=== PATIENT | male | born 1960 | race Caucasian/White ===

== ENCOUNTER 2018-11-09 01:10 | Emergency (ER) | payer MEDICAID ==
[~2018-11-09] VITALS: Ht 177.8 cm; Wt 92.2 kg
[2018-11-09 01:20] VITALS: BP 118/94
--- NOTE | 2018-11-09 01:20 | NUR ---
AMBULATED TO ER BED 11
--- NOTE | 2018-11-09 01:20 | NUR ---
PATIENT PRESENTS TO ED WITH C/O PAIN AND WOUND ON LEFT LEG AND LEFT ARM. PT STATES HE HAD A BUG BITES AND BECOMES WOUND. . DENIES N/V/D; SKIN IS PINK/WARM/DRY; AAOX4 WITH EVEN AND STEADY GAIT; LUNGS CLEAR BL; HR EVEN AND REGULAR; PT DENIES ANY FEVER, CP, SOB, OR COUGH AT THIS TIME; PATIENT STATES PAIN OF 6/10 AT THIS TIME; VSS; PATIENT POSITIONED FOR COMFORT; HOB ELEVATED; BEDRAILS UP X2; BED DOWN. ER MD MADE AWARE OF PT STATUS.
--- NOTE | 2018-11-09 01:23 | NUR ---
Patient being evaluated by physician at bedside.
[2018-11-09] MEDS ORDERED: METF1000 PO (01:28)
[2018-11-09] MEDS ORDERED: NEOMYCIN/POLYMYXIN/BACITRACIN 0.9 GM/1 PKT TP ONE (01:30)
[2018-11-09] MEDS ORDERED: CLINDAMYCIN 150 MG CAP PO ONE (01:30)
[2018-11-09] MEDS ORDERED: KETOROLAC 60 MG/2 ML VIAL IM ONE (01:30)
--- NOTE | 2018-11-09 01:48 | NUR ---
BANDAGES PLACED ON PT WOUNDS AFTER BACITRACIN APPLIED, 2 ON L LEG AND 1 ON L ARM
--- NOTE | 2018-11-09 02:20 | NUR ---
Patient discharged with v/s stable. Written and verbal after care instructions given and explained. Patient alert, oriented and verbalized understanding of instructions. Ambulatory with steady gait. All questions addressed prior to discharge. ID band removed. Patient advised to follow up with PMD. Rx of Tramadol 50mg,Motrin 800mg,Bactrim DS 800mg given. Patient educated on indication of medication including possible reaction and side effects. Opportunity to ask questions provided and answered.
[2018-11-09 02:22] VITALS: BP 110/68
== END 2018-11-09 02:22 | disposition home or self-care (01) ==
LOC: MED 01:10
DX: S80.262A Insect bite (nonvenomous), left knee, initial encounter (principal); S50.362A Insect bite (nonvenomous) of left elbow, initial encounter; L03.116 Cellulitis of left lower limb; L03.114 Cellulitis of left upper limb; M54.40 Lumbago with sciatica, unspecified side; G89.29 Other chronic pain; F17.200 Nicotine dependence, unspecified, uncomplicated; Z79.899 Other long term (current) drug therapy; W57.XXXA Bitten or stung by nonvenomous insect and other nonvenomous arthropods, initial encounter; Y93.89 Activity, other specified; Y92.89 Other specified places as the place of occurrence of the external cause; Y99.8 Other external cause status
CPT/HCPCS: 81002; 82948; 96372; 99283; J1885

== ENCOUNTER 2019-01-07 18:48 | Emergency (ER) | payer MEDICAID ==
[~2019-01-07] VITALS: Ht 167.6 cm; Wt 83.9 kg
[~2019-01-07 18:48] MED LIST: METF1000 PO
[2019-01-07 19:15] VITALS: BP 142/80
--- NOTE | 2019-01-07 19:15 | NUR ---
PT TAKEN TO BED 11, TRIAGED AT BEDSIDE.
--- NOTE | 2019-01-07 19:30 | NUR ---
58 YO M BIB SELF PRESESNTS TO ED C/O COUGH, SOB, FATIGUE, 6/10 SORE THROAT X 1 WEEK. PT REPORTS WET, PRODUCTIVE COUGH WITH GREEN SPUTUM AND REPORTS "FEELING HOT AND COLD ON AND OFF". PT ALSO C/O 7/10 RIGHT INDEX FINGER PAIN S/P POPPING A PIMPLE ON IT. -- PT IS LETHARGIC, A/O X 4. SKIN IS PINK, DRY, INTACT. PT FOLLOWS COMMAND AND ACTS APPROPRIATELY. -- BREATHING IS EVEN/UNABORED. LUNGS CTA. WET COUGH PRESENT WITH DEEP BREATHING. SP02: 95%. -- RIGHT INDEX FINGER, 2ND KNUCKLE IS RED, SWOLLEN WITH OPEN SORE. WHITE DRAINAGE PRESENT. PT POSITIONED FOR COMFORT. HOB ELEVATED, BED IN LOWEST POSITION, SIDE RAIL UP X1. VSS. NO APPARENT DISTRESS AT THIS TIME. WILL CONTINUE TO MONITOR. Addendum: 01/07/19 at 2009 by [facility] PMH: DIABETES RX: METFORMIN 1000 MG BID
--- NOTE | 2019-01-07 20:36 | NUR ---
XRAY AT BEDSIDE.
[2019-01-07] MEDS ORDERED: DEXAMETHASONE 10 MG/ML VIAL IM ONE (20:55)
--- NOTE | 2019-01-07 21:00 | NUR ---
KENDRA WASHINGTON RE-EVALUATING AT BEDSIDE.
[2019-01-07 21:16] VITALS: BP 127/83
--- NOTE | 2019-01-07 21:16 | NUR ---
Patient discharged with v/s stable. Written and verbal after care instructions given and explained. Patient alert, oriented and verbalized understanding of instructions. Ambulatory with steady gait. All questions addressed prior to discharge. ID band removed. Patient advised to follow up with PMD. Rx of Ibuprofen, Tessolon Perles, Cephalexom. Prednisone, Albuterol given. Patient educated on indication of medication including possible reaction and side effects. Opportunity to ask questions provided and answered.
== END 2019-01-07 21:16 | disposition home or self-care (01) ==
LOC: MED 18:48
DX: J40 Bronchitis, not specified as acute or chronic (principal); L03.011 Cellulitis of right finger; E11.9 Type 2 diabetes mellitus without complications; Z71.6 Tobacco abuse counseling; Z79.84 Long term (current) use of oral hypoglycemic drugs
CPT/HCPCS: 71045; 96372; 99283; J1100

== ENCOUNTER 2019-04-11 03:21 | Emergency (ER) | payer MEDICAID ==
[~2019-04-11] VITALS: Ht 177.8 cm; Wt 83.9 kg
[2019-04-11 03:27] VITALS: BP 134/99
--- NOTE | 2019-04-11 03:35 | NUR ---
PT AMBULATED W/ STEADY GAIT TO BED 7, URINE SAMPLE AT BEDSIDE.
[2019-04-11 03:56] VITALS: BP 134/99
--- NOTE | 2019-04-11 03:56 | NUR ---
58 Y/O M PRESENTED TO ED WITH C/O METAL STUCK IN L PINKY FINGER X 1 DAY. 9/10 PAIN, THROBBING. PER PT "WAS WORKING ON MY CAR WHEN I SPLICED BY FINGER ON SOME METAL." PT RECIEVED TETANUS SHOT FEBURARY 2018. +CMS. SMALL LACERATION NOTED TO L PINKY FINGER WITH SCANT YELLOW DISCHARGE. 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 ERMD NOTIFIED. WILL CONTINUE TO MONITOR.
--- NOTE | 2019-04-11 04:39 | NUR ---
DR. BRYAN EVALUATING PT
[2019-04-11] MEDS ORDERED: LIDOCAINE MPF 1% 5mL VIAL INJ ONE (04:50)
[2019-04-11] MEDS ORDERED: cefTRIAXone 1,000 MG in LIDOCAINE MPF 1% - 5 mL VIAL 2.1 ML IM ONE (05:45)
[2019-04-11] MEDS ORDERED: BACITRACIN OINT 500 UNITS/GM PKT TP ONE (05:45)
--- NOTE | 2019-04-11 06:20 | NUR ---
Patient discharged with v/s stable. Written and verbal after care instructions given and explained. Patient alert, oriented and verbalized understanding of instructions. Ambulatory with steady gait. All questions addressed prior to discharge. ID band removed. Patient advised to follow up with PMD. Rx of AUGMENTEN, NORCO, NAPROSYN given. Patient educated on indication of medication including possible reaction and side effects. Opportunity to ask questions provided and answered.
== END 2019-04-11 06:20 | disposition home or self-care (01) ==
LOC: MED 03:21
DX: S61.247A Puncture wound with foreign body of left little finger without damage to nail, initial encounter (principal); E11.9 Type 2 diabetes mellitus without complications; Z79.84 Long term (current) use of oral hypoglycemic drugs; W45.8XXA Other foreign body or object entering through skin, initial encounter; Y93.89 Activity, other specified; Y92.89 Other specified places as the place of occurrence of the external cause; Y99.8 Other external cause status
CPT/HCPCS: 29130; 73140; 96372; 99284; J0696; J2001; Q0092; 99283

== ENCOUNTER 2019-11-30 09:55 | Emergency (ER) | payer MEDICAID ==
[~2019-11-30] VITALS: Ht 177.8 cm; Wt 81.6 kg
[2019-11-30 10:10] VITALS: BP 161/99
--- NOTE | 2019-11-30 10:25 | NUR ---
C/O R GROIN PAIN X 1 YEAR ON AND OFF. PT TOOK IBUPROFEN SOMETIMES FOR PAIN. GETTING WORSE RECENTLY. MED HX: DM . DENIES N/V/D; SKIN IS PINK/WARM/DRY; AAOX4 WITH EVEN AND STEADY GAIT; LUNGS CLEAR BL; HR EVEN AND REGULAR; PT DENIES ANY FEVER, CP, SOB, OR COUGH AT THIS TIME; PATIENT STATES PAIN OF 5/10 AT THIS TIME; VSS; PATIENT POSITIONED FOR COMFORT; HOB ELEVATED; BEDRAILS UP X2; BED DOWN. ER MD MADE AWARE OF PT STATUS.
[2019-11-30] MEDS: KETOROLAC 60 MG/2 ML VIAL IM ONE ×2 (11:33→12:00)
--- NOTE | 2019-11-30 11:33 | NUR ---
MEDS [id number] AT THIS TIME
--- NOTE | 2019-11-30 11:35 | NUR ---
pt refused Toradol 60 mg im. pt stated he just wait for CT result. he is used to the pain. risks and benefits explained, pt still refused. charge nurse Naty made aware.
[2019-11-30 13:15] VITALS: BP 154/88
--- NOTE | 2019-11-30 13:17 | NUR ---
Patient discharged with v/s stable. Written and verbal after care instructions given and explained. Patient alert, oriented and verbalized understanding of instructions. Ambulatory with steady gait. All questions addressed prior to discharge. ID band removed. Patient advised to follow up with PMD. Rx of IBU,NORCO given. Patient educated on indication of medication including possible reaction and side effects. Opportunity to ask questions provided and answered.
== END 2019-11-30 13:17 | disposition home or self-care (01) ==
LOC: MED 09:55
DX: K40.90 Unilateral inguinal hernia, without obstruction or gangrene, not specified as recurrent (principal); E11.9 Type 2 diabetes mellitus without complications; Z79.84 Long term (current) use of oral hypoglycemic drugs; F17.200 Nicotine dependence, unspecified, uncomplicated
CPT/HCPCS: 74176; 82948; 99284; J1885

== ENCOUNTER 2020-05-24 19:57 | Emergency (ER) | payer MEDICAID ==
[~2020-05-24] VITALS: Ht 175.3 cm; Wt 83.9 kg
[2020-05-24 20:15] VITALS: BP 148/104
--- NOTE | 2020-05-24 20:33 | NUR ---
Dr. Graham examining patient.
--- NOTE | 2020-05-24 20:35 | NUR ---
PT ASSESSMENT COMPLETED BY DR. RAMIREZ , NO NURSING INTERVENTIONS NEEDED AT THIS TIME.
--- NOTE | 2020-05-24 20:45 | NUR ---
URINE SAMPLE COLLECTED AND HANDED TO EMT FOR URINE DIP.
[2020-05-24 21:01] VITALS: BP 148/104
--- NOTE | 2020-05-24 21:01 | NUR ---
Patient discharged with v/s stable. Written and verbal after care instructions given and explained. Patient verbalized understanding. Ambulatory with steady gait. All questions addressed prior to discharge. Advised to follow up with PMD.
== END 2020-05-24 21:01 | disposition home or self-care (01) ==
LOC: MED 19:57
DX: R20.8 Other disturbances of skin sensation (principal); F15.10 Other stimulant abuse, uncomplicated
CPT/HCPCS: 81002; 99282

== ENCOUNTER 2021-04-08 22:22 | Emergency (ER) | payer MEDICAID ==
[~2021-04-08] VITALS: Ht 177.8 cm; Wt 82.3 kg
[2021-04-08 22:29] VITALS: BP 141/77
--- NOTE | 2021-04-08 22:29 | NUR ---
TO BED AMBULATORY
--- NOTE | 2021-04-08 22:40 | NUR ---
60 Y/O MALE PATIENT PRESENTS TO ED WITH ABDOMINAL MASS . PT STATES " I HAVE AN ABDOMINAL MASS AND I HAVE A PAIN OF 9/10 IN MY RT LOWER ABDOMINAL AREA". DENIES N/V/D; SKIN IS PINK/WARM/DRY; AAOX4 WITH EVEN AND STEADY GAIT; LUNGS CLEAR BL; HR EVEN AND REGULAR; PT DENIES ANY FEVER, CP, SOB, OR COUGH AT THIS TIME; PATIENT STATES PAIN OF 9/10 AT THIS TIME; VSS; PATIENT POSITIONED FOR COMFORT; HOB ELEVATED; BEDRAILS UP X2; BED DOWN. ER MD MADE AWARE OF PT STATUS. PMH: HTN, DM NKA
--- NOTE | 2021-04-08 23:02 | NUR ---
PT TAKEN TO CT VIA W/C
[2021-04-08 23:18] LABS: BASOPHILS % (AUTO) 0.4 % (0.0-2.0); EOSINOPHILS # (AUTO) 0.1 K/uL (0-0.4); EOSINOPHILS % (AUTO) 1.6 % (0.0-4.0); HEMOGLOBIN 15.1 g/dL (12.0-18.0); LYMPHOCYTES # (AUTO) 2.2 K/uL (2.0-11.5); LYMPHOCYTES % (AUTO) 29.2 % (20.5-51.1); MEAN CORPUSCULAR HEMOGLOBIN 31 pg (27-31); MEAN CORPUSCULAR HGB CONC 34 g/dL (33-37); MEAN CORPUSCULAR VOLUME 90.2 fL (80-94); MONOCYTES # (AUTO) 0.5 K/uL (0.8-1.0); MONOCYTES % (AUTO) 6.6 % (1.7-9.3); NEUTROPHILS # (AUTO) 4.6 K/uL (1.8-7.7); NEUTROPHILS % (AUTO) 62.2 % (42.2-75.2); PLATELET COUNT (AUTO) 214 K/uL (140-450); RED BLOOD CELL COUNT(AUTO) 4.88 MIL/uL (4.20-6.10); RED CELL DISTRIBUTION WIDTH 14.6 % (11.6-13.7); WHITE BLOOD COUNT (AUTO) 7.4 K/uL (4.8-10.8)
[2021-04-08 23:36] LABS: ALBUMIN 4.2 g/dL (3.4-5.0); ANION GAP 11.9 (8-16); CARBON DIOXIDE 27.3 mmol/L (21-32); CREATININE 1.1 mg/dL (0.6-1.3); POTASSIUM 4.2 mmol/L (3.5-5.1); TOTAL BILIRUBIN 0.6 mg/dL (0.0-1.0)
[2021-04-09] MEDS ORDERED: KETOROLAC 60 MG/2 ML VIAL IM ONE
[2021-04-09 00:25] VITALS: BP 141/77
--- NOTE | 2021-04-09 00:25 | NUR ---
Patient discharged with v/s stable. Written and verbal after care instructions given and explained. Patient verbalized understanding. Ambulatory with steady gait. All questions addressed prior to discharge. Advised to follow up with PMD. Addendum: 04/09/21 at 0225 by [email or web address] RX OF IBUPROFEN GIVEN
[2021-04-09] MEDS ORDERED: IBUP-2213 PO (00:37)
== END 2021-04-09 00:25 | disposition home or self-care (01) ==
LOC: MED 22:22
DX: K46.9 Unspecified abdominal hernia without obstruction or gangrene (principal); E11.9 Type 2 diabetes mellitus without complications; I10 Essential (primary) hypertension; F17.200 Nicotine dependence, unspecified, uncomplicated; Z79.84 Long term (current) use of oral hypoglycemic drugs
CPT/HCPCS: 36415; 74176; 80053; 83690; 85025; 96372; 99284; J1885

== ENCOUNTER 2023-03-26 01:55 | Emergency (ER) | payer MEDICAID ==
[~2023-03-26] VITALS: Ht 175.3 cm; Wt 74.8 kg
[~2023-03-26 01:55] MED LIST changes: +IBUP-2213 PO; +METF-1274 PO; -METF1000 PO
--- NOTE | 2023-03-26 02:10 | NUR ---
SEEN AND EXAMINED BY LITZY
[2023-03-26 02:13] VITALS: BP 136/94
[2023-03-26] MEDS ORDERED: KETOROLAC 60 MG/2 ML VIAL IM ONE (02:15)
[2023-03-26] MEDS ORDERED: NAPR-54 PO (02:32)
[2023-03-26 02:37] VITALS: BP 119/89
--- NOTE | 2023-03-26 02:37 | NUR ---
Patient discharged with v/s stable. Written and verbal after care instructions given and explained BY DR. PEARSON. Patient alert, oriented and verbalized understanding of instructions. Ambulatory with steady gait. All questions addressed prior to discharge. ID band removed. Patient advised to follow up with PMD. Rx of NAPROSYN given. Patient educated on indication of medication including possible reaction and side effects. Opportunity to ask questions provided and answered.
== END 2023-03-26 02:37 | disposition home or self-care (01) ==
LOC: MED 01:55
DX: K40.90 Unilateral inguinal hernia, without obstruction or gangrene, not specified as recurrent (principal); E11.9 Type 2 diabetes mellitus without complications; Z79.84 Long term (current) use of oral hypoglycemic drugs; Z79.899 Other long term (current) drug therapy
CPT/HCPCS: 96372; 99283; J1885